=== PATIENT | male | born 1990 | race Caucasian/White ===

== ENCOUNTER 2022-01-08 05:48 | Emergency (ER) | payer SELFPAY ==
[~2022-01-08] VITALS: Ht 182.9 cm; Wt 104.3 kg
--- NOTE | 2022-01-08 06:20 | NUR ---
TO ER BED7. BIBS C/O FATIGUE, FEVER, BODY ACHE/CHILLS AND COUGH X1DAY. PT DID NOT TAKE ANY OTC MEDS TO RELIEVE SYMPTOMS. TESTED COVID NEGATIVE. NO FEVER NOTED AT TRIAGE. CONNECTED TO MONITOR. AWAITING MD ALVARADO/
--- NOTE | 2022-01-08 06:25 | NUR ---
IV LINE ESTABLISHED, [id number]
[2022-01-08] MEDS ORDERED: IV NS 0.9% 1,000 ML BAG IV ONE (06:30)
[2022-01-08] MEDS ORDERED: ONDANSETRON HCL/PF 4 MG/2 ML VIAL IVP ONE (06:30)
[2022-01-08] MEDS ORDERED: KETOROLAC TROMETHAMINE INJ 30 MG/ML VIAL IV ONE (06:30)
--- NOTE | 2022-01-08 06:33 | NUR ---
FLU SWAB COLLECTED SENT TO LAB
[2022-01-08] MEDS ORDERED: ONDANSETRON HCL/PF 4 MG/2 ML VIAL ONE (06:43)
[2022-01-08] MEDS ORDERED: KETOROLAC TROMETHAMINE INJ 30 MG/ML VIAL ONE (06:43)
--- NOTE | 2022-01-08 07:00 | NUR ---
XRAY AT BEDSIDE
[2022-01-08] MEDS ORDERED: ONDA4TAB5 PO (09:04)
[2022-01-08] MEDS ORDERED: GUAI120L56 PO (09:04)
[2022-01-08] MEDS ORDERED: OSEL75CA PO (09:04)
--- NOTE | 2022-01-08 09:13 | NUR ---
Pt ststes" feeling better now. Want to go home Patient discharged to home in stable condition. Written and verbal after care instructions given. Patient verbalizes understanding of instruction.
[2022-01-08 09:43] VITALS: BP 135/81
--- NOTE | 2022-01-08 09:44 | NUR ---
Patient discharged to home in stable condition. Written and verbal after care instructions given. Patient verbalizes understanding of instruction.IV removed. Catheter intact and site benign. Pressure and 4x4 applied to site. No bleeding noted.
== END 2022-01-08 09:44 | disposition home or self-care (01) ==
LOC: ER 06:05
DX: J09.X2 Influenza due to identified novel influenza A virus with other respiratory manifestations (principal); I10 Essential (primary) hypertension; E11.9 Type 2 diabetes mellitus without complications
CPT/HCPCS: 71045; 87804; 96361; 96374; 96375; 99284; J1885; J2405; J7030